=== PATIENT | female | born 1990 | race African-American/Black ===

== ENCOUNTER 2017-04-23 07:26 | Emergency (ER) | payer OTHER ==
[2017-04-23 07:31] VITALS: BP 124/75; BMI 44.6
[2017-04-23] MEDS ORDERED: IBUPROFEN 600 MG TABLET (FP) PO ONE ×2 (08:06→08:09)
--- NOTE | 2017-04-23 08:24 | PDOC ---
History of Present Illness - General Chief Complaint: Cold Symptoms Stated Complaint: COUGH Time Seen by Provider: 04/23/17 07:40 History Source: Patient Exam Limitations: No Limitations - History of Present Illness Initial Comments: 04/23/17 08:24 27-year-old female with no past medical history presents the ED with complaints of sore throat, headache, myalgia fever and chills since Saturday night. Patient denies change in appetite, rash, recent travel, recent illness. Patient does work as a [employer]ORY G[employer] in a snf and states multiple people including stress has had similar symptoms. Patient denies smoking history. Patient denies cough or difficulty breathing. Timing/Duration: reports: other Severity: reports: moderate Associated Symptoms: reports: cough, fever/chills, headache, muscle aches Past History - Travel Traveled outside of the country in the last 30 days: No - Past Medical History Allergies/Adverse Reactions: Allergies Allergy/AdvReac Type Severity Reaction Status Date / Time No Known Allergies Allergy Verified 04/23/17 07:27 Home Medications: Ambulatory Orders NK [No Known Home Medication] 04/23/17 Asthma: No Cancer: No Cardiac Disorders: No COPD: No Diabetes: No HTN: No Seizures: No Thyroid Disease: No - Immunization History Immunization Up to Date: Yes - Suicide/Smoking/Psychosocial Hx Smoking History: Never smoked Hx Alcohol Use: No Drug/Substance Use Hx: No Hx Substance Use Treatment: No Patient Lives Alone: No Lives with/in: spouse/SO Review of Systems - Review of Systems Able to Perform ROS?: Yes Constitutional: Yes: Chills, Fever, Weakness HEENTM: Yes: Nose Congestion Respiratory: Yes: Cough Cardiac (ROS): No: Symptoms Reported ABD/GI: No: Symptoms Reported : No: Symptoms Reported Musculoskeletal: No: Symptoms Reported Integumentary: No: Symptoms Reported Neurological: Yes: Headache *Physical Exam - Vital Signs Last Vital Signs Temp Pulse Resp BP Pulse Ox 99.1 F 110 H 18 124/75 97 04/23/17 07:27 04/23/17 07:27 04/23/17 07:27 04/23/17 07:27 04/23/17 07:27 - Physical Exam General Appearance: Yes: Nourished, Appropriately Dressed. No: Apparent Distress HEENT: positive: EOMI, ZEKE, TMs Normal, Pharynx Normal, Rhinorrhea (clear). negative: Pale Conjunctivae, Pharyngeal Erythema Neck: positive: Supple Respiratory/Chest: positive: Lungs Clear, Normal Breath Sounds. negative: Respiratory Distress, Accessory Muscle Use Cardiovascular: positive: Regular Rhythm, Tachycardia. negative: Murmur Gastrointestinal/Abdominal: positive: Soft. negative: Tenderness Extremity: positive: Normal Capillary Refill Integumentary: positive: Normal Color, Warm, Moist Neurologic: positive: Motor Strength 5/5 (ambulatory) Medical Decision Making - Medical Decision Making 04/23/17 08:40 Pt with uri s/s. Pt with low grade temp and tachycardia. Pt ordered for influenza testing and motrin. 04/23/17 09:06 Influenza swab negative. Patient states that after receiving the Motrin. Patient will be discharged home with supportive care instructions such as staying well-hydrated taking Motrin 600 every 8 hours and rest. *DC/Admit/Observation/Transfer Diagnosis at time of Disposition: Viral infection - Discharge Dispostion Disposition: HOME Condition at time of disposition: Improved - Referrals Referrals: Roger Mo MD [Primary Care Provider] - - Patient Instructions Printed Discharge Instructions: DI for Viral Upper Respiratory Infection -- Adult Additional Instructions: I recommend staying well-hydrated taking Motrin 600 every 8 hours and rest. - Post Discharge Activity
[2017-04-23 09:54] VITALS: PULSE 96; TEMP 98.4
== END 2017-04-23 09:45 | disposition home or self-care (01) ==
LOC: JER 07:26
DX: J06.9 Acute upper respiratory infection, unspecified (principal); B97.89 Other viral agents as the cause of diseases classified elsewhere
CPT/HCPCS: 87804; 99282-25

== ENCOUNTER 2018-04-11 13:34 | Emergency (ER) | payer OTHER ==
[2018-04-11 13:46] VITALS: BP 135/88; PULSE 98; TEMP 98; BMI 51.8
--- NOTE | 2018-04-11 14:12 | PDOC ---
History of Present Illness - General Chief Complaint: Diarrhea Stated Complaint: STOMACH VIRUS Time Seen by Provider: 04/11/18 13:52 History Source: Patient Past History - Past Medical History Allergies/Adverse Reactions: Allergies Allergy/AdvReac Type Severity Reaction Status Date / Time No Known Allergies Allergy Verified 04/11/18 13:41 Home Medications: Ambulatory Orders NK [No Known Home Medication] 04/23/17 Asthma: No Cancer: No Cardiac Disorders: No COPD: No Diabetes: No HTN: No Seizures: No Thyroid Disease: No - Immunization History Immunization Up to Date: Yes - Suicide/Smoking/Psychosocial Hx Smoking History: Never smoked Hx Alcohol Use: No Drug/Substance Use Hx: No Hx Substance Use Treatment: No Review of Systems - Review of Systems Constitutional: Yes: Weakness. No: Chills, Fever ABD/GI: Yes: Diarrhea. No: Nausea, Rectal Bleeding, Vomiting, Tarry Stools *Physical Exam - Vital Signs Last Vital Signs Temp Pulse Resp BP Pulse Ox 98 F 98 H 18 135/88 99 04/11/18 13:43 04/11/18 13:43 04/11/18 13:43 04/11/18 13:43 04/11/18 13:43 - Physical Exam General Appearance: Yes: Appropriately Dressed. No: Apparent Distress HEENT: positive: Normal Voice Neck: positive: Supple Respiratory/Chest: negative: Respiratory Distress Gastrointestinal/Abdominal: positive: Soft. negative: Tender Integumentary: positive: Dry, Warm Neurologic: positive: Fully Oriented, Alert, Normal Mood/Affect Moderate Sedation - Procedure Monitoring Vital Signs: Procedure Monitoring Vital Signs Temperature 98 F 04/11/18 13:43 Pulse Rate 98 H 04/11/18 13:43 Respiratory Rate 18 04/11/18 13:43 Blood Pressure 135/88 04/11/18 13:43 O2 Sat by Pulse Oximetry (%) 99 04/11/18 13:43 ED Treatment Course - LABORATORY CBC & Chemistry Diagram: 04/11/18 14:33 04/11/18 14:33 Medical Decision Making - Medical Decision Making 04/11/18 14:11 28 yo F, no sig hx, here w/ diarrhea. For the past 2 days, has had > 10 e/o NB, watery diarrhea and now feels weak. Reports abd cramping only immediately prior to a BM, otherwise no abd pain and denies n/v/f/c. No recent travel, sick contacts unusual food or abx use. 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 See exam Diarrhea x 2 days Works at a [employer] and stable w/ benign abd -IVF -labs including stool sample for cdif -reassess 04/11/18 14:58 04/11/18 16:22 Labs unremarkable and patient reports significant improvement with IV fluids. Patient unable to give us a stool sample here, but states she feels safe going home to hydrate. Reasons to return to ER discussed with patient *DC/Admit/Observation/Transfer Diagnosis at time of Disposition: Diarrhea Qualifiers: Diarrhea type: unspecified type Qualified Code(s): R19.7 - Diarrhea, unspecified - Discharge Dispostion Disposition: HOME Condition at time of disposition: Improved - Referrals Referrals: Roger Mo MD [Primary Care Provider] - - Patient Instructions Printed Discharge Instructions: DI for Viral Gastroenteritis -- Adult Additional Instructions: Was coming cause of diarrhea is usually viral. This condition usually runs its course, until it improves. Treatment is supportive and includes adequate hydration to prevent dehydration. Given that you work in a alf, we wanted to rule out more serious causes of diarrhea, such as cdif, but you were unable to give us a stool sample here. If diarrhea persists and/or worsens, please return to ER where at that time we will try to obtain stool sample - Post Discharge Activity Forms/Work/School Notes: Back to Work
[2018-04-11] MEDS ORDERED: SODIUM CHLORIDE 1,000 ML IV STA (14:13)
[2018-04-11 14:54] LABS: BASO % 0.7 % (0-2.0); EOS % 1.4 % (0-4.5); HEMATOCRIT 37.7 % (32.4-45.2); HEMOGLOBIN 12.8 GM/dL (10.7-15.3); LYMPH % 31.7 % (8-40); MCH 29.5 pg (25.7-33.7); MCHC 33.9 g/dl (32.0-36.0); MEAN CELL VOLUME 86.9 fl (80-96); NEUT % 55.2 % (42.8-82.8); PLATELET COUNT 263 K/MM3 (134-434); RBC 4.34 M/mm3 (3.60-5.2); RDW 13.9 % (11.6-15.6); WHITE BLOOD COUNT 7.4 K/mm3 (4.0-10.0)
[2018-04-11 15:21] LABS: URINE APPEARANCE CLEAR; URINE BILIRUBIN NEGATIVE (<2.0 mg/dL); URINE COLOR LTYELLOW; URINE GLUCOSE (UA) NEGATIVE (NEGATIVE); URINE KETONE NEGATIVE (NEGATIVE); URINE LEUK ESTERASE NEGATIVE (NEGATIVE); URINE NITRITE NEGATIVE (NEGATIVE); URINE PROTEIN NEGATIVE (NEGATIVE); URINE UROBILINOGEN NEGATIVE mg/dL (0.2-1.0)
[2018-04-11 15:31] LABS: ALBUMIN 3.2 g/dl (3.4-5.0); ALK PHOS 70 U/L (45-117); ANION GAP 8 MMOL/L (8-16); BILIRUBIN,TOTAL 0.2 mg/dL (0.2-1); BLOOD UREA NITROGEN 9 mg/dL (7-18); CALCIUM 8.6 mg/dL (8.5-10.1); CHLORIDE 103 mmol/L (98-107); CO2 28 mmol/L (21-32); CREATININE 0.7 mg/dL (0.55-1.3); GLUCOSE,RANDOM 90 mg/dL (74-106); POTASSIUM 4.1 mmol/L (3.5-5.1); SGOT/AST 18 U/L (15-37); SGPT/ALT 21 U/L (13-61); SODIUM 139 mmol/L (136-145); TOT PROT 7.4 g/dl (6.4-8.2)
== END 2018-04-11 16:49 | disposition home or self-care (01) ==
LOC: JER 13:34
PROC: 3E0337Z Introduction of Electrolytic and Water Balance Substance into Peripheral Vein, Percutaneous Approach (ICD-10-PCS; principal; 2018-04-11)
DX: R19.7 Diarrhea, unspecified (principal)
CPT/HCPCS: 36415; 80053; 81003; 84703; 85025; 96360; 99282-25; J7030

== ENCOUNTER 2019-05-24 14:59 | Emergency (ER) | payer OTHER ==
[2019-05-24 15:13] VITALS: BP 146/65; PULSE 89; TEMP 97.9; BMI 54.9
--- NOTE | 2019-05-24 15:28 | PDOC ---
History of Present Illness - General Chief Complaint: Sore Throat Stated Complaint: SORE THROAT Time Seen by Provider: 05/24/19 15:22 History Source: Patient - History of Present Illness Timing/Duration: reports: this morning Past History - Past Medical History Allergies/Adverse Reactions: Allergies Allergy/AdvReac Type Severity Reaction Status Date / Time No Known Allergies Allergy Verified 05/24/19 15:13 Home Medications: Ambulatory Orders NK [No Known Home Medication] 04/23/17 Asthma: No Cancer: No Cardiac Disorders: No COPD: No Diabetes: No HTN: No Seizures: No Thyroid Disease: No - Immunization History Immunization Up to Date: Yes - Psycho Social/Smoking Cessation Hx Smoking History: Never smoked Information on smoking cessation initiated: No Hx Alcohol Use: No Drug/Substance Use Hx: No Hx Substance Use Treatment: No Review of Systems - Review of Systems Constitutional: Yes: Malaise. No: Fever HEENTM: Yes: Throat Pain. No: Ear Pain Respiratory: No: Cough, Shortness of Breath Cardiac (ROS): No: Chest Pain ABD/GI: No: Diarrhea, Nausea, Vomiting *Physical Exam - Vital Signs Last Vital Signs Temp Pulse Resp BP Pulse Ox 97.9 F 89 18 146/65 98 05/24/19 15:11 05/24/19 15:11 05/24/19 15:11 05/24/19 15:11 05/24/19 15:11 - Physical Exam General Appearance: Yes: Appropriately Dressed. No: Apparent Distress HEENT: positive: Normal ENT Inspection, Normal Voice, TMs Normal, Pharynx Normal. negative: Scleral Icterus (R), Scleral Icterus (L), Muffled/Hoarse voice Neck: positive: Supple. negative: Lymphadenopathy (R), Lymphadenopathy (L) Respiratory/Chest: positive: Lungs Clear, Normal Breath Sounds. negative: Respiratory Distress Cardiovascular: positive: Regular Rate, S1, S2 Integumentary: positive: Dry, Warm Neurologic: positive: Fully Oriented, Alert, Normal Mood/Affect Medical Decision Making - Medical Decision Making 05/24/19 15:26 29-year-old morbidly obese female here with malaise with sore throat that started this morning. No body aches headache fever or chills. No recent travel or sick contacts. Has not taken anything for symptoms see exam M/l viral illness Exam unremarkable Dc w/ supportive tx Discharge - Discharge Information Problems reviewed: Yes Clinical Impression/Diagnosis: Viral syndrome Condition: Good Disposition: HOME - Follow up/Referral - Patient Discharge Instructions Patient Printed Discharge Instructions: DI for Viral Syndrome - Post Discharge Activity Work/Back to School Note: Back to Work
== END 2019-05-24 15:35 | disposition home or self-care (01) ==
LOC: JERFT 14:59
DX: B34.9 Viral infection, unspecified (principal)
CPT/HCPCS: 99282-25

== ENCOUNTER 2019-05-29 08:32 | Emergency (ER) | payer OTHER ==
[2019-05-29 08:50] VITALS: BP 124/76; PULSE 98; BMI 54.9
[2019-05-29] MEDS ORDERED: IBUPROFEN 600 MG TABLET (FP) PO ONE ×2 (09:28→09:31)
[2019-05-29 09:34] LABS: URINE APPEARANCE CLEAR; URINE BILIRUBIN NEGATIVE (NEGATIVE); URINE COLOR YELLOW; URINE GLUCOSE (UA) NEGATIVE (NEGATIVE); URINE KETONE NEGATIVE (NEGATIVE); URINE LEUK ESTERASE NEGATIVE (NEGATIVE); URINE NITRITE NEGATIVE (NEGATIVE); URINE PROTEIN NEGATIVE (NEGATIVE); URINE UROBILINOGEN 0.2 mg/dL (0.2-1.0)
--- NOTE | 2019-05-29 09:37 | PDOC ---
History of Present Illness - General Chief Complaint: Headache Stated Complaint: HEADACHE Time Seen by Provider: 05/29/19 08:51 History Source: Patient Exam Limitations: No Limitations Past History - Past Medical History Allergies/Adverse Reactions: Allergies Allergy/AdvReac Type Severity Reaction Status Date / Time Penicillins Allergy Verified 05/29/19 08:40 Home Medications: Ambulatory Orders NK [No Known Home Medication] 04/23/17 Asthma: No Cancer: No Cardiac Disorders: No COPD: No Diabetes: No HTN: No Seizures: No Thyroid Disease: No - Immunization History Immunization Up to Date: Yes - Psycho Social/Smoking Cessation Hx Smoking History: Never smoked Hx Alcohol Use: No Drug/Substance Use Hx: No Hx Substance Use Treatment: No *Physical Exam - Vital Signs Last Vital Signs Temp Pulse Resp BP Pulse Ox 99.9 F H 98 H 18 124/76 100 05/29/19 08:41 05/29/19 08:41 05/29/19 08:41 05/29/19 08:41 05/29/19 08:41 - Physical Exam General Appearance: Yes: Obese. No: Apparent Distress HEENT: positive: ZEKE. negative: Nasal Congestion, Rhinorrhea, Sinus Tenderness Respiratory/Chest: positive: Lungs Clear, Normal Breath Sounds. negative: Respiratory Distress Cardiovascular: positive: Regular Rhythm, Regular Rate, S1, S2. negative: Murmur Gastrointestinal/Abdominal: positive: Normal Bowel Sounds, Soft. negative: Tender, Distended, Guarding, Rebound Neurologic: positive: liquor merchant II-XII NML intact, Fully Oriented, Alert, Normal Mood/Affect, Motor Strength 5/5, Other (normal gait) ED Treatment Course - ADDITIONAL ORDERS Additional order review: Laboratory Results 05/29/19 09:23 POC Glucometer 101 05/29/19 09:23 POC Glucometer 101 Medical Decision Making - Medical Decision Making 29 y/o F with no sig pmh, morbidly obese, presents with frontal DODD x 3 days, gradual in onset. Took 1000 mg of Tylenol yesterday with minimal relief. Had 1 episode of emesis yesterday. Also mentions increased urinary frequency and polydipsia x 2 days. Denies fever, congestion, rhinorrhea, sob, cp, abd pain, diarrhea, flank pain, dysuria, hematuria, visual/gait changes, numbness/tingling/weakness of extremities, recent travel Temp in triage incorrect Rechecked here and it was 98.1 No concern for SAH or ICH Patient appears comfortable Fingerstick was 101 Unlikely DODD from viral URI given afebrile No concern for sinusitis either D/W Dr. Leavitt - recommends Motrin Will reassess after meds 05/29/19 09:34 UA negative UCG negative patient feeling better after motrin stable for dc 05/29/19 10:11 Discharge - Discharge Information Problems reviewed: Yes Clinical Impression/Diagnosis: Frontal headache Condition: Stable Disposition: HOME - Admission No - Additional Discharge Information Prescription Drug Monitoring Program (I-STOP) results: I-STOP not reviewed - Follow up/Referral Referrals: Roger Mo MD [Primary Care Provider] - 2 Days - Patient Discharge Instructions Patient Printed Discharge Instructions: DI for Headache Additional Instructions: Thank you for choosing [facility]. It was a pleasure taking care of you. You may take Tylenol 650 mg or Motrin 600 mg every 6 hours by mouth as needed for mild to moderate pain. Take Motrin with food. Do not take more than 4000 mg of Tylenol in 1 day. If feeling congested, use Nedi-Pot or normal saline spray. Follow-up with your doctor in 2 days Return to the Emergency Department if your symptoms worsen or persist or have other concerning symptoms. - Post Discharge Activity
[2019-05-29 09:58] LABS: HCG,QUALITATIVE URINE NEGATIVE
[2019-05-29 10:41] VITALS: TEMP 98
== END 2019-05-29 10:41 | disposition home or self-care (01) ==
LOC: JER 08:32
DX: R51 Headache (principal); Z88.0 Allergy status to penicillin
CPT/HCPCS: 81003; 82962; 84703; 99283-25

== ENCOUNTER 2021-11-28 20:19 | Emergency (ER) | payer OTHER ==
[2021-11-28 20:46] VITALS: RESP 20; TEMP 98.4; BMI 51.1
[2021-11-28] MEDS ORDERED: ACETAMINOPHEN 500 MG TABLET (FP) PO ONE (22:09)
[2021-11-28 23:45] VITALS: BP 109/70; PULSE 105
== END 2021-11-28 22:45 | disposition home or self-care (01) ==
LOC: JER 20:19
DX: O98.52 Other viral diseases complicating childbirth (principal); U07.1 COVID-19; Z3A.15 15 weeks gestation of pregnancy
CPT/HCPCS: 0241U-QW; 99283-25